=== PATIENT | female | born 1970 | race Two or more races ===

== ENCOUNTER 2019-10-19 02:03 | Inpatient (IN) | payer OTHER, MEDICAID, SELFPAY ==
[~2019-10-19] VITALS: Ht 154.9 cm; Wt 55.0 kg
[2019-10-19] VITALS (16 sets, daily range): BP systolic 77–181; BP diastolic 38–93
[2019-10-19] MEDS ORDERED: LIPITOR80 MG PO (02:21)
[2019-10-19] MEDS ORDERED: ASPIRIN FOR CHI81 M1 PO (02:21)
[2019-10-19] MEDS ORDERED: AMLODIPINE BESYL5 M2 PO (02:22)
[2019-10-19] MEDS ORDERED: CALCIUM ACETAT667 M2 PO (02:23)
[2019-10-19] MEDS ORDERED: RENA-VITE1 TAB PO (02:23)
[2019-10-19 03:14] LABS: BASOPHIL % 0.6 % (0-2); PLATELET COUNT 216 x10^3mcL (130-400)
[2019-10-19 03:17] LABS: RED CELL DISTRIBUTION WIDTH 17.2 % (11.5-14.5)
[2019-10-19 04:22] LABS: ALBUMIN 4.6 g/dL (3.4-5.0); BILIRUBIN TOTAL 0.94 mg/dL (0.20-1.00); CARBON DIOXIDE 27.8 mmol/L (21-32); POTASSIUM SERUM 4.6 mmol/L (3.5-5.1); TOTAL PROTEIN, SERUM 8.1 g/dL (6.4-8.2)
[2019-10-19 04:23] LABS: C REACTIVE PROTEIN 0.2 mg/dL (<=0.9); CREATININE SERUM 9.2 mg/dL (0.6-1.0); LACTIC DEHYDROGENASE (LDH) 293 U/L (100-190)
[2019-10-19 06:13] LABS: CHOLESTEROL/HDL RATIO 2.2
[2019-10-20] VITALS (11 sets, daily range): BP systolic 93–152; BP diastolic 49–69
[2019-10-20 05:46] LABS: CALCIUM 9.3 mg/dL (8.5-10.1); CARBON DIOXIDE 33.3 mmol/L (21-32); POTASSIUM SERUM 4.7 mmol/L (3.5-5.1)
[2019-10-20 05:56] LABS: CREATININE SERUM 6.6 mg/dL (0.6-1.0)
[2019-10-20 06:11] LABS: BASOPHIL % 0.4 % (0-2); PLATELET COUNT 138 x10^3mcL (130-400)
[2019-10-20 06:15] LABS: RED CELL DISTRIBUTION WIDTH 17.7 % (11.5-14.5)
[2019-10-21] VITALS (10 sets, daily range): BP systolic 75–198; BP diastolic 44–86
[2019-10-21 05:11] LABS: BASOPHIL % 0.3 % (0-2); PLATELET COUNT 155 x10^3mcL (130-400)
[2019-10-21 05:15] LABS: RED CELL DISTRIBUTION WIDTH 17.6 % (11.5-14.5)
[2019-10-21 05:18] LABS: CARBON DIOXIDE 30.7 mmol/L (21-32); MAGNESIUM 2.3 mg/dL (1.8-2.4); PHOSPHOROUS 2.9 mg/dL (2.5-4.9); POTASSIUM SERUM 4.4 mmol/L (3.5-5.1)
[2019-10-21 05:30] LABS: CREATININE SERUM 8.4 mg/dL (0.6-1.0)
[2019-10-21 17:11] LABS: CALCIUM 9.7 mg/dL (8.5-10.1); CARBON DIOXIDE 29.7 mmol/L (21-32); POTASSIUM SERUM 3.8 mmol/L (3.5-5.1)
[2019-10-21 17:24] LABS: CREATININE SERUM 5.8 mg/dL (0.6-1.0)
[2019-10-22] VITALS (15 sets, daily range): BP systolic 85–158; BP diastolic 39–98
[2019-10-22 05:41] LABS: BASOPHIL % 0.1 % (0-2); PLATELET COUNT 150 x10^3mcL (130-400)
[2019-10-22 05:51] LABS: RED CELL DISTRIBUTION WIDTH 16.7 % (11.5-14.5)
[2019-10-22 05:52] LABS: CARBON DIOXIDE 26.7 mmol/L (21-32); MAGNESIUM 2.1 mg/dL (1.8-2.4); PHOSPHOROUS 3.7 mg/dL (2.5-4.9); POTASSIUM SERUM 3.9 mmol/L (3.5-5.1)
[2019-10-22 05:59] LABS: CREATININE SERUM 6.7 mg/dL (0.6-1.0)
[2019-10-23] VITALS (18 sets, daily range): BP systolic 100–170; BP diastolic 46–85
[2019-10-23 05:37] LABS: BASOPHIL % 0.2 % (0-2); PLATELET COUNT 172 x10^3mcL (130-400)
[2019-10-23 05:42] LABS: RED CELL DISTRIBUTION WIDTH 17.2 % (11.5-14.5)
[2019-10-23 05:44] LABS: CALCIUM 9.2 mg/dL (8.5-10.1); CARBON DIOXIDE 26.3 mmol/L (21-32); MAGNESIUM 2.5 mg/dL (1.8-2.4); PHOSPHOROUS 4.7 mg/dL (2.5-4.9); POTASSIUM SERUM 4.6 mmol/L (3.5-5.1)
[2019-10-23 05:47] LABS: CREATININE SERUM 7.8 mg/dL (0.6-1.0)
[2019-10-24] VITALS (19 sets, daily range): BP systolic 86–134; BP diastolic 39–64
[2019-10-24 05:12] LABS: MAGNESIUM 2.3 mg/dL (1.8-2.4); PHOSPHOROUS 3.9 mg/dL (2.5-4.9); POTASSIUM SERUM 3.6 mmol/L (3.5-5.1)
[2019-10-24 05:19] LABS: CREATININE SERUM 5.9 mg/dL (0.6-1.0)
[2019-10-24 05:34] LABS: PLATELET COUNT 208 x10^3mcL (130-400)
[2019-10-24 05:35] LABS: BASOPHIL % 0 % (0-2); RED CELL DISTRIBUTION WIDTH 16.6 % (11.5-14.5)
[2019-10-25] VITALS (17 sets, daily range): BP systolic 92–126; BP diastolic 43–61
[2019-10-25 04:56] LABS: PLATELET COUNT 228 x10^3mcL (130-400)
[2019-10-25 05:04] LABS: BASOPHIL % 0 % (0-2); CALCIUM 8.9 mg/dL (8.5-10.1); CARBON DIOXIDE 26.8 mmol/L (21-32); MAGNESIUM 2.5 mg/dL (1.8-2.4); PHOSPHOROUS 4.1 mg/dL (2.5-4.9); POTASSIUM SERUM 3.7 mmol/L (3.5-5.1); RED CELL DISTRIBUTION WIDTH 17.1 % (11.5-14.5)
[2019-10-25 05:23] LABS: CREATININE SERUM 7.4 mg/dL (0.6-1.0)
[2019-10-26] VITALS (16 sets, daily range): BP systolic 92–112; BP diastolic 42–69
[2019-10-26 04:58] LABS: PLATELET COUNT 246 x10^3mcL (130-400)
[2019-10-26 05:01] LABS: BASOPHIL % 0 % (0-2); RED CELL DISTRIBUTION WIDTH 16.8 % (11.5-14.5)
[2019-10-26 05:02] LABS: CALCIUM 8.8 mg/dL (8.5-10.1); CARBON DIOXIDE 25.9 mmol/L (21-32); MAGNESIUM 2.5 mg/dL (1.8-2.4); PHOSPHOROUS 4.5 mg/dL (2.5-4.9); POTASSIUM SERUM 4.2 mmol/L (3.5-5.1)
[2019-10-26 05:11] LABS: CREATININE SERUM 8.9 mg/dL (0.6-1.0)
[2019-10-27] VITALS (16 sets, daily range): BP systolic 93–144; BP diastolic 47–71
[2019-10-27 05:38] LABS: PLATELET COUNT 257 x10^3mcL (130-400)
[2019-10-27 05:41] LABS: BASOPHIL % 0 % (0-2); RED CELL DISTRIBUTION WIDTH 17.3 % (11.5-14.5)
[2019-10-27 05:58] LABS: CALCIUM 8.8 mg/dL (8.5-10.1); CARBON DIOXIDE 28.3 mmol/L (21-32); MAGNESIUM 2.2 mg/dL (1.8-2.4); PHOSPHOROUS 3.2 mg/dL (2.5-4.9); POTASSIUM SERUM 3.4 mmol/L (3.5-5.1)
[2019-10-28] VITALS (17 sets, daily range): BP systolic 124–156; BP diastolic 35–69
[2019-10-28 05:06] LABS: CALCIUM 9.2 mg/dL (8.5-10.1); CARBON DIOXIDE 27.3 mmol/L (21-32); POTASSIUM SERUM 3.3 mmol/L (3.5-5.1)
[2019-10-28 05:15] LABS: CREATININE SERUM 7.8 mg/dL (0.6-1.0)
[2019-10-28 05:32] LABS: BASOPHIL % 0.1 % (0-2); PLATELET COUNT 245 x10^3mcL (130-400)
[2019-10-28 05:33] LABS: RED CELL DISTRIBUTION WIDTH 16.7 % (11.5-14.5)
[2019-10-29] VITALS (10 sets, daily range): BP systolic 148–178; BP diastolic 48–90
[2019-10-29 04:57] LABS: PLATELET COUNT 276 x10^3mcL (130-400)
[2019-10-29 04:59] LABS: BASOPHIL % 0 % (0-2); RED CELL DISTRIBUTION WIDTH 17.7 % (11.5-14.5)
[2019-10-29 05:11] LABS: CALCIUM 8.9 mg/dL (8.5-10.1); CARBON DIOXIDE 25.3 mmol/L (21-32); PHOSPHOROUS 3.3 mg/dL (2.5-4.9); POTASSIUM SERUM 3.6 mmol/L (3.5-5.1)
[2019-10-30 00:42] VITALS: BP 152/85
[2019-10-30 05:18] VITALS: BP 153/79
[2019-10-30 05:55] LABS: PLATELET COUNT 252 x10^3mcL (130-400)
[2019-10-30 06:12] LABS: CALCIUM 8.6 mg/dL (8.5-10.1); CARBON DIOXIDE 25.2 mmol/L (21-32); MAGNESIUM 2.2 mg/dL (1.8-2.4); PHOSPHOROUS 5.8 mg/dL (2.5-4.9)
[2019-10-30 06:41] LABS: BASOPHIL % 0 % (0-2); RED CELL DISTRIBUTION WIDTH 17.5 % (11.5-14.5)
[2019-10-30 08:00] VITALS: BP 144/65
[2019-10-30 08:52] VITALS: Ht 154.9 cm; Wt 55.0 kg
[2019-10-30 12:00] VITALS: BP 135/65
[2019-10-30 18:26] VITALS: BP 106/50
[2019-10-30 20:50] VITALS: BP 118/52
[2019-10-31 05:32] VITALS: BP 110/54
[2019-10-31 06:55] LABS: BASOPHIL % 0.3 % (0-2); PLATELET COUNT 259 x10^3mcL (130-400); RED CELL DISTRIBUTION WIDTH 17.8 % (11.5-14.5)
[2019-10-31 07:06] LABS: CALCIUM 8.2 mg/dL (8.5-10.1); CARBON DIOXIDE 26.9 mmol/L (21-32); PHOSPHOROUS 3.3 mg/dL (2.5-4.9); POTASSIUM SERUM 3.5 mmol/L (3.5-5.1)
[2019-10-31 08:08] VITALS: BP 112/64
[2019-10-31 11:48] VITALS: BP 108/53
[2019-10-31 16:34] VITALS: BP 104/53
[2019-10-31 20:58] VITALS: BP 108/54
[2019-11-01 05:35] VITALS: BP 141/60
[2019-11-01 06:38] LABS: BASOPHIL % 0.2 % (0-2); PLATELET COUNT 221 x10^3mcL (130-400)
[2019-11-01 06:47] LABS: RED CELL DISTRIBUTION WIDTH 17.9 % (11.5-14.5)
[2019-11-01 07:08] LABS: CALCIUM 8.5 mg/dL (8.5-10.1); CARBON DIOXIDE 23.5 mmol/L (21-32); POTASSIUM SERUM 4.4 mmol/L (3.5-5.1)
[2019-11-01 07:10] LABS: CREATININE SERUM 8.2 mg/dL (0.6-1.0)
[2019-11-01 07:53] VITALS: BP 118/55
[2019-11-01 11:25] VITALS: BP 137/60
[2019-11-01 16:05] VITALS: BP 117/57
[2019-11-01 19:50] VITALS: BP 108/59
[2019-11-02 05:20] VITALS: BP 131/53
[2019-11-02 08:26] VITALS: BP 140/62
[2019-11-02 09:31] LABS: PLATELET COUNT 251 x10^3mcL (130-400)
[2019-11-02 09:39] LABS: BASOPHIL % 0 % (0-2); RED CELL DISTRIBUTION WIDTH 18.9 % (11.5-14.5)
[2019-11-02 09:43] LABS: CALCIUM 9.3 mg/dL (8.5-10.1)
[2019-11-02 09:48] LABS: CREATININE SERUM 5.8 mg/dL (0.6-1.0)
[2019-11-02 10:44] VITALS: BP 116/73
[2019-11-02 12:46] VITALS: BP 113/63
[2019-11-02 19:00] VITALS: BP 109/60
[2019-11-02 21:46] VITALS: BP 112/58
[2019-11-03 06:44] VITALS: BP 110/55
[2019-11-03 08:12] VITALS: BP 115/59
[2019-11-03 08:46] LABS: BASOPHIL % 0.1 % (0-2); PLATELET COUNT 251 x10^3mcL (130-400)
[2019-11-03 08:56] LABS: RED CELL DISTRIBUTION WIDTH 19.5 % (11.5-14.5)
[2019-11-03 09:03] LABS: CALCIUM 9.5 mg/dL (8.5-10.1); CARBON DIOXIDE 26.9 mmol/L (21-32); POTASSIUM SERUM 4.4 mmol/L (3.5-5.1)
[2019-11-03 09:06] LABS: CREATININE SERUM 8.2 mg/dL (0.6-1.0)
[2019-11-03 12:04] VITALS: BP 129/56
[2019-11-03] MEDS ORDERED: LEV250 PO (12:26)
[2019-11-03] MEDS ORDERED: LOP50 PO (12:27)
[2019-11-03 16:05] VITALS: BP 108/51
[2019-11-03 20:45] VITALS: BP 117/58
[2019-11-04 05:19] VITALS: BP 106/51
[2019-11-04 06:49] LABS: CALCIUM 9.1 mg/dL (8.5-10.1); CARBON DIOXIDE 23.8 mmol/L (21-32); POTASSIUM SERUM 4.5 mmol/L (3.5-5.1)
[2019-11-04 07:47] VITALS: BP 121/53
[2019-11-04 07:48] LABS: BASOPHIL % 0.2 % (0-2); PLATELET COUNT 194 x10^3mcL (130-400)
[2019-11-04 08:40] LABS: RED CELL DISTRIBUTION WIDTH 19.9 % (11.5-14.5)
[2019-11-04 12:00] VITALS: BP 115/60
[2019-11-04 16:59] VITALS: BP 109/55
[2019-11-04 20:47] VITALS: BP 129/56
[2019-11-05 06:05] VITALS: BP 109/55
[2019-11-05 08:15] VITALS: BP 129/60
[2019-11-05 08:43] LABS: PLATELET COUNT 155 x10^3mcL (130-400)
[2019-11-05 08:44] LABS: BASOPHIL % 0 % (0-2); RED CELL DISTRIBUTION WIDTH 20.4 % (11.5-14.5)
[2019-11-05 08:49] LABS: CALCIUM 9.3 mg/dL (8.5-10.1); CARBON DIOXIDE 27.3 mmol/L (21-32); POTASSIUM SERUM 4.6 mmol/L (3.5-5.1)
[2019-11-05 08:54] LABS: CREATININE SERUM 6.7 mg/dL (0.6-1.0)
[2019-11-05 09:49] LABS: ovalocyte/elliptocyte 1+; rbc morphology (normal/abnorm) ABNORMAL (NORMAL); tear drop cell (dacryocyte) 1+
[2019-11-05 12:11] VITALS: BP 94/50
[2019-11-05 12:51] VITALS: BP 94/50
[2019-11-05] MEDS ORDERED: METOPROLOL SUCC25 M2 PO (12:51)
== END 2019-11-05 13:35 | disposition home health service (06) | DRG 870 ==
LOC: ED 02:03 → IC 04:21 → DU 10-30 18:15 → MU 11-02 16:00
PROVIDERS: Emergency Medicine; Internal Medicine; ADMIT Family Medicine; ATTEND Family Medicine
PROC: 5A1D70Z Performance of Urinary Filtration, Intermittent, Less than 6 Hours Per Day (ICD-10-PCS; 2019-10-19)
PROC: 5A1955Z Respiratory Ventilation, Greater than 96 Consecutive Hours (ICD-10-PCS; principal; 2019-10-21)
PROC: 0BH17EZ Insertion of Endotracheal Airway into Trachea, Via Natural or Artificial Opening (ICD-10-PCS; 2019-10-21)
PROC: 5A1D70Z Performance of Urinary Filtration, Intermittent, Less than 6 Hours Per Day (ICD-10-PCS; 2019-10-21)
PROC: 5A1D70Z Performance of Urinary Filtration, Intermittent, Less than 6 Hours Per Day (ICD-10-PCS; 2019-10-23)
PROC: 02HV33Z Insertion of Infusion Device into Superior Vena Cava, Percutaneous Approach (ICD-10-PCS; 2019-10-23)
PROC: B548ZZA Ultrasonography of Superior Vena Cava, Guidance (ICD-10-PCS; 2019-10-23)
PROC: 5A1D70Z Performance of Urinary Filtration, Intermittent, Less than 6 Hours Per Day (ICD-10-PCS; 2019-10-26)
PROC: 5A1D70Z Performance of Urinary Filtration, Intermittent, Less than 6 Hours Per Day (ICD-10-PCS; 2019-10-28)
PROC: 5A1D70Z Performance of Urinary Filtration, Intermittent, Less than 6 Hours Per Day (ICD-10-PCS; 2019-10-30)
PROC: 5A1D70Z Performance of Urinary Filtration, Intermittent, Less than 6 Hours Per Day (ICD-10-PCS; 2019-11-02)
PROC: 5A1D70Z Performance of Urinary Filtration, Intermittent, Less than 6 Hours Per Day (ICD-10-PCS; 2019-11-04)
DX: A41.9 Sepsis, unspecified organism (principal); J96.01 Acute respiratory failure with hypoxia; J69.0 Pneumonitis due to inhalation of food and vomit; N18.6 End stage renal disease; J96.02 Acute respiratory failure with hypercapnia; G93.41 Metabolic encephalopathy; I50.33 Acute on chronic diastolic (congestive) heart failure; J90 Pleural effusion, not elsewhere classified; I16.1 Hypertensive emergency; I13.2 Hypertensive heart and chronic kidney disease with heart failure and with stage 5 chronic kidney disease, or end stage renal disease; R65.20 Severe sepsis without septic shock; Z99.2 Dependence on renal dialysis; E87.70 Fluid overload, unspecified; E78.5 Hyperlipidemia, unspecified; E83.39 Other disorders of phosphorus metabolism; I25.10 Atherosclerotic heart disease of native coronary artery without angina pectoris; D64.9 Anemia, unspecified; F41.9 Anxiety disorder, unspecified; E87.6 Hypokalemia; Z20.828 Contact with and (suspected) exposure to other viral communicable diseases
CPT/HCPCS: 31500; 36556; 36600; 82962; 83880; 85378; 87804; 92526-GN; 92610-GN; 94150; 97110-GP; 97112-GP; 97116-GP; 97530-GP; A4628; C1729; G0378; J0360; J0456; J0885-EC; J1100; J1642; J1644; J1940; J2250; J2370; J2405; J2543; J2704; J3010; J3370; J3490; J3535; J7030; J7040; J7050; J7512; J7626; P9047; Q0092; Q9967; U0003-CS